=== PATIENT | male | born 1985 | race Two or more races ===

== ENCOUNTER 2019-07-28 08:03 | Outpatient (CLI) | payer OTHER | END 2019-07-28 08:22 | disposition home or self-care (01) | LOC: LAB 08:03 | DX: R10.84 Generalized abdominal pain (principal) ==

== ENCOUNTER 2019-07-28 10:50 | Outpatient (CLI) | payer OTHER | END 2019-07-28 11:03 | disposition home or self-care (01) | LOC: TOM 10:50 | DX: R10.84 Generalized abdominal pain (principal) ==

== ENCOUNTER 2020-06-05 19:58 | Emergency (ER) | payer OTHER ==
[~2020-06-05] VITALS: Ht 167.6 cm; Wt 96.6 kg
[2020-06-05] MEDS ORDERED: CIPRO500 MG PO (23:33)
[2020-06-05] MEDS ORDERED: PEPCID AC20 MG PO (23:33)
== END 2020-06-05 23:32 | disposition home or self-care (01) ==
LOC: ER 19:58
DX: R19.7 Diarrhea, unspecified (principal); R10.84 Generalized abdominal pain

== ENCOUNTER 2020-06-10 19:28 | Emergency (ER) | payer OTHER ==
[~2020-06-10] VITALS: Ht 167.6 cm; Wt 96.6 kg
[~2020-06-10 19:28] MED LIST: CIPRO500 MG PO; PEPCID AC20 MG PO
== END 2020-06-11 00:13 | disposition home or self-care (01) ==
LOC: ER 19:28
DX: K52.9 Noninfective gastroenteritis and colitis, unspecified (principal); E86.0 Dehydration; R10.84 Generalized abdominal pain